=== PATIENT | female | born 1965 | race American Indian/Alaskan Native ===

== ENCOUNTER 2019-08-15 20:29 | Emergency (ER) | payer BC ==
[2019-08-15 21:20] VITALS: BP 135/83
--- NOTE | 2019-08-15 21:37 | Event Note ---
ED Screening Note Date of service: 08/15/19 Time: 21:32 ED Screening Note: Pt complains of right facial swelling and pain x today denies sore throat, ear ache, or trouble swallowing currently on meds for H pylori-second round This initial assessment/diagnostic orders/clinical plan/treatment(s) is/are subject to change based on patients health status, clinical progression and re- assessment by fellow clinical providers in the ED. Further treatment and workup at subsequent clinical providers discretion. Patient/guardian urged not to elope from the ED as their condition may be serious if not clinically assessed and managed. Initial orders include: mono labs
[2019-08-15 22:56] LABS: Basophils # (Auto) 0.1 K/mm3 (0.0-0.1); Basophils % (Auto) 0.9 % (0.0-1.8); Eosinophils # (Auto) 0.3 K/mm3 (0.0-0.4); Eosinophils % (Auto) 3.6 % (0.0-4.3); Hematocrit 40.6 % (30.3-42.9); Hemoglobin 13.4 gm/dl (10.1-14.3); Lymphocytes # (Auto) 2.9 K/mm3 (1.2-5.4); Lymphocytes % (Auto) 40.2 % (13.4-35.0); Mean Corpuscular HGB Conc 33 % (30-34); Mean Corpuscular Volume 79 fl (79-97); Monocytes # (Auto) 0.6 K/mm3 (0.0-0.8); Monocytes % (Auto) 8.3 % (0.0-7.3); Platelet Count 230 K/mm3 (140-440); Red Blood Count 5.13 M/mm3 (3.65-5.03); Red Cell Distribution Width 15.4 % (13.2-15.2)
[2019-08-15 23:14] LABS: BUN/Creatinine Ratio 20; Blood Urea Nitrogen 16 mg/dL (7-17); Calcium 9.3 mg/dL (8.4-10.2); Hemolysis Index 5
--- NOTE | 2019-08-16 00:05 | Emergency Department Report ---
ED Neck Pain HPI Chief Complaint: Neck Pain/Injury Stated Complaint: POSSIBLE ALLERGIC REACTION Time Seen by Provider: 08/15/19 21:32 Duration: Today Neck Pain Location: Lateral Neck Severity: moderate Mechanism: Unsure Symptoms: No Pain with Movement, No Radiation to Left Upper Ext, No Radiation to Right Upper Ext, No Numbness, No Weakness, No Previous History Other History: 54-year-old -[place] female presents to the emergency room stating that she has some swelling to her right neck and ringing in her right ear. Patient reports that she has been on medication for H. pylori for the second round. Patient was concerned about allergic reaction. Patient denies any chest pain denies any shortness of breath no nausea no vomiting no trouble swallowing. ED Review of Systems ROS: Stated complaint: POSSIBLE ALLERGIC REACTION Other details as noted in HPI Comment: All other systems reviewed and negative ED Past Medical Hx - Past Medical History Previous Medical History?: Yes Hx Hypertension: Yes Additional medical history: Scoliosis - Surgical History Past Surgical History?: Yes Additional Surgical History: Back , H.pylori - Social History Smoking Status: Never Smoker Substance Use Type: None Neck Pain Exam - Exam General: Vital signs noted. No distress. Alert and acting appropriately. HEENT: No Facial Pain, No Scalp Tenderness, No Contusion, No Abrasion, No Laceration Neck Pain: No Midline Tenderness, No Right Paraspinal Tenderness, No Left Paraspinal Tenderness, No Right Trapezius Tenderness, No Left Trapezius Tenderness, No Pain with Rotation Right, No Pain with Rotation Left, No Pain wit h Extension, No Pain with Flexion, No pain with R Lateral Flexion, No Pain with L Lateral Flexion Chest: Yes Clear Lung Sounds, No Pain with Respirations Heart: Yes Regular, No Murmur Neuro: No Numbness, No Weakness, No Normal Reflexes, No Radicular Deficits Exam: Patient has a right lateral lymphadenopathy. No tenderness to palpate oromucosa is moist airway is patent. ED Course Vital Signs 08/15/19 20:34 Temperature 98.4 F Pulse Rate 81 Respiratory 18 Rate Blood Pressure 135/83 O2 Sat by Pulse 98 Oximetry ED Medical Decision Making - Lab Data Result diagrams: 08/15/19 22:32 08/15/19 22:32 - Medical Decision Making 54-year-old -[place] female presents to the emergency room stating that she has some swelling to her right neck and ringing in her right ear. Patient reports that she has been on medication for H. pylori for the second round. Patient was concerned about allergic reaction. Patient denies any chest pain denies any shortness of breath no nausea no vomiting no trouble swallowing. Critical care attestation.: If time is entered above; I have spent that time in minutes in the direct care of this critically ill patient, excluding procedure time. ED Disposition Clinical Impression: Anterior cervical lymphadenopathy Disposition: DC- TO HOME OR SELFCARE Is pt being admited?: No Does the pt Need Aspirin: No Condition: Stable Instructions: Lymphadenopathy (ED) Additional Instructions: Continue taken medications as prescribed. He can try taking ibuprofen or Aleve. Follow-up with the primary care provider in next 3-5 days Referrals: JEFFREY CROSS MD [Staff Physician] - 3-5 Days GHANSHYAM GLEZ JR, MD [Staff Physician] - 3-5 Days
== END 2019-08-16 00:02 | disposition home or self-care (01) ==
LOC: ED 20:29
DX: R59.0 Localized enlarged lymph nodes (principal); I10 Essential (primary) hypertension
CPT/HCPCS: 36415; 80048; 85025